=== PATIENT | male | born 1990 | race African-American/Black ===

== ENCOUNTER 2018-11-15 08:18 | Emergency (ER) | payer SELFPAY ==
[~2018-11-15] VITALS: Ht 185.4 cm; Wt 64.0 kg
[2018-11-15] MEDS ORDERED: PREDNISONE 20MG TABLET PO ONE (09:30)
[2018-11-15] MEDS ORDERED: ALBUTEROL (0.5%) 2.5MG/0.5ML NEB HHN ONE (09:30)
[2018-11-15 10:39] VITALS: BP 107/65
== END 2018-11-15 10:41 | disposition home or self-care (01) ==
LOC: ER 08:18
DX: R06.2 Wheezing (principal); J45.901 Unspecified asthma with (acute) exacerbation; R06.02 Shortness of breath
CPT/HCPCS: 94640; 99283; J7512; J7611; Z7610

== ENCOUNTER 2019-04-11 11:31 | Emergency (ER) | payer MEDICAID ==
[~2019-04-11] VITALS: Ht 185.4 cm; Wt 59.0 kg
[2019-04-11] MEDS ORDERED: ALBUTEROL (0.083%) 2.5MG/3ML NEB HHN STA (11:44)
[2019-04-11] MEDS ORDERED: IPRATROPIUM BROMIDE (0.02%) 0.5MG/2.5ML NEB HHN STA (11:44)
[2019-04-11] MEDS ORDERED: PREDNISONE 20MG TABLET PO STA (11:44)
[2019-04-11 13:18] VITALS: BP 120/80
== END 2019-04-11 13:20 | disposition home or self-care (01) ==
LOC: ER 11:47
DX: J45.901 Unspecified asthma with (acute) exacerbation (principal); Z76.0 Encounter for issue of repeat prescription
CPT/HCPCS: 94640; 99283; J7512; J7610; Z7610